=== PATIENT | female | born 1960 | race Caucasian/White ===

== ENCOUNTER 2018-06-18 06:45 | Observation (INO) ==
[2018-06-18] MEDS ORDERED: Ciprofloxacin 400 MG/200 ML 400 MG/200 ML PIGGYBACK IV.SIG ONE (07:11)
[2018-06-18] MEDS ORDERED: Sod Chloride 0.9% Inj 1,000 ML IV.SIG ONE (07:11)
[2018-06-18 07:32] LABS: Baso % (Auto) 0.6 % (0.0-2.0); Eos # (Auto) 0.3 th/mm3 (0.0-0.4); Eos % (Auto) 3.5 % (0.0-4.0); Hematocrit 40.5 % (35.0-46.0); Hemoglobin 13.6 gm/dL (11.6-15.3); Lymph # (Auto) 2.1 th/mm3 (1.0-4.8); Mean Corpuscular HGB Conc 33.5 % (32.0-36.0); Mean Corpuscular Hemoglobin 32.3 pg (27.0-34.0); Mean Corpuscular Volume 96.3 fL (80.0-100.0); Mean Platelet Volume 7.8 fL (7.0-11.0); Mono # (Auto) 0.7 th/mm3 (0.0-0.9); Neut # (Auto) 4.1 th/mm3 (1.8-7.7); Neut % (Auto) 57.9 % (16.0-70.0); Platelet Count 239 th/mm3 (150-450); Red Cell Distribution Width 12.9 % (11.6-17.2); White Blood Count 7.2 th/mm3 (4.0-11.0)
[2018-06-18 07:45] LABS: Chloride 108 meq/L (98-107); Potassium 3.7 meq/L (3.5-5.1); Sodium 140 meq/L (136-145)
[2018-06-18 07:49] LABS: Albumin 3.5 g/dL (3.4-5.0); Anion Gap 5 meq/L (5-15); Blood Urea Nitrogen 13 mg/dL (7-18); Carbon Dioxide 26.7 meq/L (21.0-32.0); Glucose,Random 98 mg/dL (74-106); Lipase 96 U/L (73-393)
[2018-06-18 07:52] LABS: Alanine Aminotransferase 30 U/L (10-53); Aspartate Aminotransferase 19 U/L (15-37); Glomerular Filtration Rate 67 mL/min (>89)
[2018-06-18 07:53] LABS: Total Protein 8.1 g/dL (6.4-8.2)
[2018-06-18 07:55] LABS: Alkaline Phosphatase 88 U/L (45-117)
--- NOTE | 2018-06-18 08:03 | ED ---
HPI General Chief Complaint: Abdominal Pain Stated Complaint: N/V after taking abx Time Seen by Provider: 06/18/18 07:07 Source: patient Mode of arrival: ambulatory Limitations: no limitations History of Present Illness HPI narrative: 57-year-old female arrives with abdominal pain which originates in the left lower pelvis and radiates to the left abdomen left upper quadrant and epigastrium. She was seen here 2 days ago and was diagnosed with colitis. She was discharged with Cipro and Flagyl. She has been vomiting over the past 2 nights rendering oral antibiotics to be of questionable efficacy. No fever. Pain has not worsened in severity however the overall area of painful involvement is greater. Patient has a history of colon resection in the remote past done by Dr. Mensah however patient does not follow with [facility] anymore or Dr. Mensah. Patient reports constipation for 2 days. Related Data Home Medications Medication Instructions Recorded Confirmed diphenhydramine HCl [Benadryl 25 mg PO HS 06/16/18 06/18/18 Allergy] famotidine [Pepcid] 20 mg PO DAILY 06/16/18 06/18/18 nifedipine 30 mg PO DAILY 06/16/18 06/18/18 simvastatin 40 mg PO QPM 06/16/18 06/18/18 Previous Rx's Medication Instructions Recorded ciprofloxacin HCl [Cipro] 500 mg PO Q12H #20 tab 06/16/18 metronidazole [Flagyl] 500 mg PO Q8H 10 Days #30 tab 06/16/18 Allergies Allergy/AdvReac Type Severity Reaction Status Date / Time adhesive Allergy Intermediate rash Verified 06/18/18 07:33 fexofenadine Allergy Intermediate NAUSEA AND Verified 06/18/18 07:33 VOMITING latex Allergy Intermediate blisters Verified 06/18/18 07:33 penicillin G Allergy Intermediate RASH Verified 06/18/18 07:33 hydromorphone AdvReac Intermediate NAUSEA/VOMI Verified 06/18/18 07:33 TING Review of Systems ROS: all other systems reviewed are negative Constitutional Denies fever(s) [facility] Medical History Medical History History of diverticulitis (Acute) History of hypercholesterolemia (Acute) History of hypertension (Acute) History of hysterectomy (Acute) Surgical History Surgical History History of colostomy reversal (Acute) Social History Social History Substance History: No History of Abuse Second Hand Smoke Exposure: No Smoking Status: Current every day smoker Tobacco Type: Cigarettes How Often Do You Have a Drink Containing Alcohol: Never Recent Travel in [facility] within the Last 8 Weeks: No Recent Out of Country Travel within the Last 8 Weeks: No Immunization History Tetanus Immunization: Unsure Hx Influenza Vaccine This Season: No Exam Narrative Exam Narrative: GENERAL: 57-year-old female pleasant well-nourished well- developed mild distress due to pain SKIN: Focused skin assessment warm/dry. HEAD: Atraumatic. Normocephalic. EYES: Pupils equal and round. No scleral icterus. No injection or drainage. ENT: No nasal bleeding or discharge. Mucous membranes pink and moist. NECK: Trachea midline. No JVD. CARDIOVASCULAR: Regular rate and rhythm. No murmur appreciated. RESPIRATORY: No accessory muscle use. Clear to auscultation. Breath sounds equal bilaterally. GASTROINTESTINAL: Soft. Diffuse tenderness. MUSCULOSKELETAL: No obvious deformities. No clubbing. No cyanosis. No edema. NEUROLOGICAL: Awake and alert. No obvious cranial nerve deficits. Motor grossly within normal limits. Normal speech. PSYCHIATRIC: Appropriate mood and affect; insight and judgment normal. Course Initial Documented Vital Signs Temperature 98.3 F 06/18/18 06:50 Pulse Rate 88 06/18/18 06:50 Respiratory Rate 16 06/18/18 06:50 Blood Pressure 126/71 06/18/18 06:50 Pulse Oximetry 98 06/18/18 06:50 Last Documented Vital Signs Temperature 98.3 F 06/18/18 06:50 Pulse Rate 74 06/18/18 09:49 Respiratory Rate 18 06/18/18 09:49 Blood Pressure 136/84 06/18/18 09:49 Pulse Oximetry 99 06/18/18 09:49 Medical Decision Making [facility] Narrative Medical decision making narrative: Patient will be admitted for IV antibiotics in the setting of colitis with nausea vomiting. Pain has been decreased as well. The patient reports positive flatus overnight but none this morning. Case discussed with Dr. Sanchez. Abdominal x-ray added on. Film shows nonobstructive bowel gas pattern. Patient has been able to ambulate ED. No vomiting here. She has received IV Cipro and Flagyl. Medical Screen Exam Complete: Yes Emergency Medical Condition: Yes Medical Records Medical records reviewed: Yes I reviewed the patient's medical records. Lab Data Lab results reviewed: Yes I reviewed the patient's lab results. Lab results narrative: UA: no UTI Result diagrams: 06/18/18 07:28 06/18/18 07:28 Lab Results 06/18/18 06/18/18 06/18/18 Range/Units 07:28 07:28 08:59 CBC w Diff Auto diff final WBC 7.2 (4.0-11.0) th/mm3 RBC 4.20 (4.00-5.30) mil/mm3 Hgb 13.6 (11.6-15.3) gm/dL Hct 40.5 (35.0-46.0) % MCV 96.3 (80.0-100.0) fL MCH 32.3 (27.0-34.0) pg MCHC 33.5 (32.0-36.0) % RDW 12.9 (11.6-17.2) % Plt Count 239 (150-450) th/mm3 MPV 7.8 (7.0-11.0) fL Neut % (Auto) 57.9 (16.0-70.0) % Lymph % (Auto) 29.0 (9.0-44.0) % [place] % (Auto) 9.0 H (0.0-8.0) % Eos % (Auto) 3.5 (0.0-4.0) % Baso % (Auto) 0.6 (0.0-2.0) % Neut # (Auto) 4.1 (1.8-7.7) th/mm3 Lymph # (Auto) 2.1 (1.0-4.8) th/mm3 [place] # (Auto) 0.7 (0.0-0.9) th/mm3 Eos # (Auto) 0.3 (0.0-0.4) th/mm3 Baso # (Auto) 0.0 (0.0-0.2) th/mm3 WBC Differential . Differential Comment . Sodium 140 (136-145) meq/L Potassium 3.7 (3.5-5.1) meq/L Chloride 108 H (98-107) meq/L Carbon Dioxide 26.7 (21.0-32.0) meq/L Anion Gap 5 (5-15) meq/L BUN 13 (7-18) mg/dL Creatinine 0.87 (0.50-1.00) mg/dL Estimated GFR 67 L (>89) mL/min Random Glucose 98 (74-106) mg/dL Calcium 9.0 (8.5-10.1) mg/dL Total Bilirubin 0.3 (0.2-1.0) mg/dL AST 19 (15-37) U/L ALT 30 (10-53) U/L Alkaline Phosphatase 88 (45-117) U/L Total Protein 8.1 (6.4-8.2) g/dL Albumin 3.5 (3.4-5.0) g/dL Lipase 96 (73-393) U/L Ur Collection Type Cath Urine Color Yellow (Yellw/Straw) Urine Clarity Clear (Clear) Urine pH 6.0 (5.0-8.5) Ur Specific [place] 1.020 (1.002-1.035) Urine Protein Negative (Neg-Trace) mg/dL Urine Glucose (UA) Negative (Negative) mg/dL Urine Ketones Negative (Negative) mg/dL Urine Occult Blood Negative (Negative) Urine Nitrate Negative (Negative) Urine Bilirubin Negative (Negative) Urine Urobilinogen 0.2 (Less than 2) mg/dL Ur Leukocyte Esterase Negative (Negative) Urine RBC 0-3 (0-3) /hpf Urine WBC 0-5 (0-5) /hpf Ur Squamous Epith Cells 6-10 H (0-5) /hpf Micro UA Comment Cath-culture not ind Urine Culture Comments Cath-cult not ind Imaging Data Radiologist's impression: Abdomen X-Ray 06/18/18 10:29 CONCLUSION: 1. Plain film findings characteristic of prior anterior abdominal wall hernia mesh repair. 2. Nonobstructive bowel gas pattern. Discharge Plan Discharge Disposition Patient Disposition: 30 Still Patient Physicians Team ED Provider: Carlos Cruz Primary Care Provider: Adam Cruz Attending Provider: Basilio Sanchez Status ED Status: Admitted Observation Patient
[2018-06-18] MEDS ORDERED: Acetaminophen 325 MG Tablet PO ONE (08:12)
[2018-06-18 09:15] LABS: Bilirubin,Urine Negative (Negative); Clarity,Urine Clear (Clear); Color,Urine Yellow (Yellw/Straw); Glucose,Urine (UA) Negative (Negative); Leukocyte Esterase,Urine Negative (Negative); Nitrite,Urine Negative (Negative); Urobilinogen,Urine 0.2 mg/dL (Less than 2)
[2018-06-18 09:29] LABS: RBC,Urine 0-3 /hpf (0-3); WBC,Urine 0-5 /hpf (0-5)
[2018-06-18] MEDS ORDERED: Temazepam 15 MG Capsule PO PRN (10:50)
--- NOTE | 2018-06-18 10:55 | XR ---
EXAM DATE: 06/18/2018 10:46 AM EDT AGE/SEX: 57 years / Female INDICATIONS: Abdominal pain and vomiting CLINICAL DATA: This is the patient's subsequent encounter. Patient reports that signs and symptoms h ave been present for 2 days and indicates a pain score of 10/10. MEDICAL/SURGICAL HISTORY: . Diverticulitis. Hypertension. Colitis Hysterectomy. Colon resecti on. Multiple hernia repairs with mesh. COMPARISON: [facility] – [place], SMALL BOWEL SERIES W/GASTROGRAFIN, 02/04/2015. . FINDINGS: The abdominal bowel gas pattern is normal. No obstruction or pneumoperitoneum. Innumerable coil-like metallic densities are characteristic of a prior abdominal hernia mesh repair. CONCLUSION: 1. Plain film findings characteristic of prior anterior abdominal wall hernia mesh repair. 2. Nonobstructive bowel gas pattern. Electronically signed by: Husma Miller MD 06/18/2018 10:54 AM EDT
[2018-06-18] MEDS ORDERED: Enoxaparin Inj 40 MG/0.4 ML Syringe SQ SCH (11:00)
[2018-06-18] MEDS: Sod Chloride 0.9% Inj 1,000 ML IV.CONT SCH ×2 (11:18→22:36)
--- NOTE | 2018-06-18 13:00 | P.HP ---
History of Present Illness Primary Care Physician: Adam Cruz MD Chief Complaint: Nausea vomiting History of Present Illness: 57-year-old female with known history of hypertension, hyperlipidemia , chronic history of recurrent diverticulitis status post multiple surgeries, colostomy, reversal, hernias. Patient is well-known to pain associated with diverticulitis she started developing that approximate 1 week ago. She came to the emergency department 2 days ago and was given prescription for Cipro and Flagyl. Patient states that she fill the prescription yesterday morning and after he took her first dose she got significant nausea with subsequent vomiting. She states that she cannot keep any liquids or solids down. She try to take another dose last evening however she was unsuccessful. Patient has not been able to tolerate anything by mouth since yesterday. Unable take oral medication for her underlying condition. Patient came to emergency department for evaluation. It was recommended by ER physician the patient be admitted for further evaluation and management for failing outpatient treatment. At the time of seeing the patient she states that she is doing better. She is asking if she can have something to drink and eat. Her pain is still located in the left lower quadrant which was a 6/10 on a pain scale. No radiation. She denies any diarrhea. She does have constipation on a daily basis and she takes a laxative every day. She denies any melena or hematochezia. - Diagnosis (1) Diverticulitis (2) Failure of outpatient treatment Review of Systems All other systems reviewed negative except as stated in HPI Gastrointestinal: Reports abdominal pain, Reports constipation, Reports nausea, Reports vomiting PMFSH - History History Provided By: Patient - Medical History Medical History: Medical History (Last Updated 06/16/18 @ 19:49 by Oj Munroe RN) History of diverticulitis History of hypercholesterolemia History of hypertension History of hysterectomy - Surgical History Surgical History: Surgical History (Last Updated 06/18/18 @ 12:54 by MARIA ESTHER Mckeon) History of colostomy reversal History of hysterectomy - Family History Family History: Family History (Last Updated 06/18/18 @ 12:54 by MARIA ESTHER Mckeon) Other No pertinent family history - Tobacco History Second Hand Smoke Exposure: Yes () Tobacco Use In Past 30 Days: Yes Smoking Status: Current every day smoker Tobacco Type: Cigarettes Packs Per Day: 0.5 Years Smoked: 45 - Alcohol History How Often Do You Have a Drink Containing Alcohol: Never - Substance Use History Substance History: No History of Abuse - Travel History Recent Travel in the [place] Within the Last 8 Weeks: Yes Recent Travel Out of the Country Within the Last 8 Weeks: No - Immunization History Tetanus Immunization: Unsure Hx Influenza Vaccine This Season: No Medications and Allergies Active Medications: Active Medications Al Hydroxide/Mg Hydroxide (Milk Of Fanny Liq) 30 ml PO Q12H PRN PRN Reason: Mild Constipation Enoxaparin Sodium (Lovenox Inj) 40 mg SQ Q24H [facility] Last Admin: 06/18/18 11:18 Dose: 40 mg Levofloxacin/Dextrose (Levaquin 750 Mg Premix Inj) 150 mls @ 100 mls/hr IV.SIG Q24H [facility] Metronidazole/Sodium Chloride (Flagyl 500 Mg Inj) 100 mls @ 100 mls/hr IV.SIG Q6H [facility] Sodium Chloride (Ns Inj) 1,000 mls @ 100 mls/hr IV.CONT .Q10H [facility] Last Admin: 06/18/18 11:18 Dose: 100 mls/hr Nifedipine (Procardia Xl) 30 mg PO DAILY LEON Sodium Chloride (Ns Flush) 2 ml IV.FLUSH PRN PRN PRN Reason: FLUSH AFTER USING IV ACCESS Temazepam (Restoril) 15 mg PO HS PRN PRN Reason: INSOMNIA Allergies Allergy/AdvReac Type Severity Reaction Status Date / Time adhesive Allergy Intermediate rash Verified 06/18/18 07:33 fexofenadine Allergy Intermediate NAUSEA AND Verified 06/18/18 07:33 VOMITING latex Allergy Intermediate blisters Verified 06/18/18 07:33 penicillin G Allergy Intermediate RASH Verified 06/18/18 07:33 hydromorphone AdvReac Intermediate NAUSEA/VOMI Verified 06/18/18 07:33 TING Home Medications Medication Instructions Recorded Confirmed Type diphenhydramine HCl [Benadryl 25 mg PO HS 06/16/18 06/18/18 History Allergy] famotidine [Pepcid] 20 mg PO DAILY 06/16/18 06/18/18 History nifedipine 30 mg PO DAILY 06/16/18 06/18/18 History simvastatin 40 mg PO QPM 06/16/18 06/18/18 History Exam Vital signs: Vital Signs 06/18/18 06:50 06/18/18 07:11 06/18/18 09:49 Temperature 98.3 F Pulse Rate 88 74 Respiratory Rate 16 18 Blood Pressure 126/71 136/84 Pulse Oximetry 98 94 L 99 06/18/18 11:36 06/18/18 12:00 Temperature 96.6 F L Pulse Rate 74 69 Respiratory Rate 16 18 Blood Pressure 136/79 132/78 Pulse Oximetry 95 Intake & Output 06/17/18 06/18/18 06/18/18 18:59 06:59 18:59 Intake Total 1300 / 1300 Balance 1300 / 1300 Weight 83 kg 83.7 kg Intake: IV 1300 / 1300 Cipro 400 MG/200 ML Inj 400 mg 200 / 200 In 200 ml @ 200 mls/hr IV.SIG ONCE ONE Rx#:[id number] NS Inj 1,000 ML @ Wide Open IV. 1000 / 1000 SIG BOLUS ONE Rx#:[id number] Flagyl 500 MG Inj 100 ML @ 100 100 / 100 mls/hr IV.SIG ONCE ONE Rx#: [id number] Other: Weight On Admission 83.7 kg Narrative: GENERAL: Well-developed, well-nourished, in no acute distress. alert and orientated HEENT: Head is normocephalic without any lesions or masses noted. Facial features are symmetric. Eyes: Pupils equal round reactive to light. Extraocular muscles are intact. Conjunctivae were clear. Oropharyngeal: Pharynx without any erythema edema. Tongue is midline without deviation. Buccal mucosa is moist without any masses or lesions NECK: Supple without any masses. Trachea midline no deviation. No JVD, no bruits are appreciated CARDIAC: Regular rhythm, regular rate. S1/S2 are heard. No murmurs gallops or rubs. LUNGS: Clear to auscultation bilaterally. No wheeze, rhonchi or rales. No use of accessory muscles on inspiration or expiration. ABDOMEN: Soft, abdominal tenderness noted along the left abdomen. Nondistended. Bowel sounds heard in all 4 quadrants. No organomegaly or masses. Negative rebound, negative guarding EXTREMITIES: No edema, pulses are equal bilaterally. No cyanosis or clubbing NEUROLOGY: Mood and affect appear appropriate. Cranial nerves II through XII grossly intact. Muscle strength 5/5 in upper and lower extremities bilaterally. Deep tendon reflexes are 2+ in upper and lower extremities bilaterally. Results - Labs CBC & Chem 7: 06/18/18 07:28 06/18/18 07:28 Labs: Laboratory Results - last 24 hr 06/18/18 06/18/18 06/18/18 07:28 07:28 08:59 CBC w Diff Auto diff final WBC 7.2 RBC 4.20 Hgb 13.6 Hct 40.5 MCV 96.3 MCH 32.3 MCHC 33.5 RDW 12.9 Plt Count 239 MPV 7.8 Neut % (Auto) 57.9 Lymph % (Auto) 29.0 [place] % (Auto) 9.0 H Eos % (Auto) 3.5 Baso % (Auto) 0.6 Neut # (Auto) 4.1 Lymph # (Auto) 2.1 [place] # (Auto) 0.7 Eos # (Auto) 0.3 Baso # (Auto) 0.0 WBC Differential . Differential Comment . Sodium 140 Potassium 3.7 Chloride 108 H Carbon Dioxide 26.7 Anion Gap 5 BUN 13 Creatinine 0.87 Estimated GFR 67 L Random Glucose 98 Calcium 9.0 Total Bilirubin 0.3 AST 19 ALT 30 Alkaline Phosphatase 88 Total Protein 8.1 Albumin 3.5 Lipase 96 Ur Collection Type Cath Urine Color Yellow Urine Clarity Clear Urine pH 6.0 Ur Specific [place] 1.020 Urine Protein Negative Urine Glucose (UA) Negative Urine Ketones Negative Urine Occult Blood Negative Urine Nitrate Negative Urine Bilirubin Negative Urine Urobilinogen 0.2 Ur Leukocyte Esterase Negative Urine RBC 0-3 Urine WBC 0-5 Ur Squamous Epith Cells 6-10 H Micro UA Comment Cath-culture not ind Urine Culture Comments Cath-cult not ind - Imaging Impressions Abdomen X-Ray 06/18/18 10:29 CONCLUSION: 1. Plain film findings characteristic of prior anterior abdominal wall hernia mesh repair. 2. Nonobstructive bowel gas pattern. Caprini VTE Risk Assessment Caprini VTE Risk Assessment: No/Low Risk (score <= 1) Caprini Risk Assessment Model: Point Value = 1 Point Value = 2 Point Value = 3 Point Value = 5 Age 41-60 Minor surgery BMI > 25 kg/m2 Swollen legs Varicose veins or History of unexplained or recurrent spontaneous Oral contraceptives or hormone replacement Sepsis (< 1 month) Serious lung disease, including pneumonia (< 1 month) Abnormal pulmonary function Acute myocardial infarction Congestive heart failure (< 1 month) History of inflammatory bowel disease Medical patient at bed rest Age 61-74 Arthroscopic surgery Major open surgery (> 45 min) Laparoscopic surgery (> 45 min) Malignancy Confined to bed (> 72 hours) Immobilizing plaster cast Central venous access Age >= 75 History of VTE Family history of VTE Factor V Leiden Prothrombin [id number] Lupus anticoagulant Anticardiolipin antibodies Elevated serum homocysteine Heparin-induced thrombocytopenia Other congenital or acquired thrombophilia Stroke (< 1 month) Elective arthroplasty Hip, pelvis, or leg fracture Acute spinal cord injury (< 1 month) Prophylaxis Regimen: Total Risk Factor Score Risk Level Prophylaxis Regimen 0-1 Low Early ambulation 2 Moderate Order ONE of the following: *Sequential Compression Device (SCD) *Heparin 5000 units SQ BID 3-4 Higher Order ONE of the following medications: *Heparin 5000 units SQ TID *Enoxaparin/Lovenox 40 mg SQ daily (WT < 150 kg, CrCl > 30 mL/min) *Enoxaparin/Lovenox 30 mg SQ daily (WT < 150 kg, CrCl > 10-29 mL/min) *Enoxaparin/Lovenox 30 mg SQ BID (WT < 150 kg, CrCl > 30 mL/min) AND/OR *Sequential Compression Device (SCD) 5 or more Highest Order ONE of the following medications: *Heparin 5000 units SQ TID (Preferred with Epidurals) *Enoxaparin/Lovenox 40 mg SQ daily (WT < 150 kg, CrCl > 30 mL/min) *Enoxaparin/Lovenox 30 mg SQ daily (WT < 150 kg, CrCl > 10-29 mL/min) *Enoxaparin/Lovenox 30 mg SQ BID (WT < 150 kg, CrCl > 30 mL/min) AND *Sequential Compression Device (SCD) Assessment and Plan - Assessment (1) Diverticulitis Code(s): K57.92 - Diverticulitis of intestine, part unspecified, without perforation or abscess without bleeding Status: Acute (2) Failure of outpatient treatment Code(s): Z78.9 - Other specified health status Status: Acute - Plan Diverticulitis -Patient admitted due to failing outpatient management secondary to intractable nausea vomiting unable to take oral medications -Start Levaquin/Flagyl IV -Continue IV fluid -Antiemetic as needed -Advance diet as tolerated Hypertension, hyperlipidemia -Home blood pressure medications have been continued -Continue monitor blood pressure and adjust medications as needed DVT prevention -Sequential compression devices -Subcutaneous Lovenox Discussed Condition With: ER physician, Dr. Sanchez, patient, nursing staff Discharge Planning: Discharge planning once patient able to tolerate oral medications.
[2018-06-18] MEDS ORDERED: Pantoprazole Inj 40 MG Vial IV.PUSH SCH (14:00)
[2018-06-18] MEDS ORDERED: Acetaminophen 325 MG Tablet PO PRN (23:22)
[2018-06-19] MEDS: Sod Chloride 0.9% Inj 1,000 ML IV.CONT SCH ×2 (04:23→08:08)
--- NOTE | 2018-06-19 07:20 | P.PN ---
Subjective Interval history: 57-year-old female who is seen and examined today for follow-up on colitis and intractable nausea vomiting. Patient is tolerating diet at this time. She is very eager to go home is requesting to be discharged. She is having normal bowel movements this morning. Tolerating diet. Vital signs are stable. Patient remains afebrile. Physical Exam Vital signs: Vital Signs 06/18/18 09:49 06/18/18 11:36 06/18/18 12:00 Temperature 96.6 F L Pulse Rate 74 74 69 Respiratory Rate 18 Blood Pressure 136/84 136/79 132/78 Pulse Oximetry 99 95 06/18/18 16:00 06/18/18 20:00 06/19/18 00:00 Temperature 97.6 F 96.6 F L 97 F L Pulse Rate 69 63 73 Respiratory Rate 18 Blood Pressure 140/87 148/87 H 124/77 Pulse Oximetry 98 98 97 Intake & Output 06/18/18 06/19/18 06/19/18 18:59 06:59 18:59 Intake Total 1999 1685 / 1685 Balance 1999 1685 / 1685 Weight 83.7 kg 86 kg Intake: IV 1400 / 1400 1200 / 1200 NS Inj 1,000 ML @ 100 mls/hr IV 1000 / 1000 .CONT .Q10H [facility] Rx#:[id number] Cipro 400 MG/200 ML Inj 400 mg 200 / 200 In 200 ml @ 200 mls/hr IV.SIG ONCE ONE Rx#:[id number] NS Inj 1,000 ML @ Wide Open IV. 1000 / 1000 SIG BOLUS ONE Rx#:[id number] Flagyl 500 MG Inj 100 ML @ 100 200 / 200 200 / 200 mls/hr IV.SIG Q6H [facility] Rx#: [id number] Oral 600 / 600 485 / 485 Other: # Voids 2 3 Date of Last Bowel Movement 06/16/18 06/18/18 # Bowel Movements 0 # Incontinent Bowel Movements 2 Weight On Admission 83.7 kg Narrative: GENERAL: Well-developed, well-nourished, in no acute distress. alert and orientated HEENT: Head is normocephalic without any lesions or masses noted. Facial features are symmetric. Eyes: Extraocular muscles are intact. Conjunctivae were clear. NECK: Supple without any masses. Trachea midline no deviation. No JVD, CARDIAC: Regular rhythm, regular rate. S1/S2 are heard. No murmurs gallops or rubs. LUNGS: Clear to auscultation bilaterally. No wheeze, rhonchi or rales. No use of accessory muscles on inspiration or expiration. ABDOMEN: Soft, nontender. Nondistended. Bowel sounds heard in all 4 quadrants. No organomegaly or masses. Negative rebound, negative guarding EXTREMITIES: No edema, pulses are equal bilaterally. No cyanosis or clubbing NEUROLOGY: Mood and affect appear appropriate. Cranial nerves II through XII grossly intact. Moving all extremities, speech is clear Results - Labs CBC & Chem 7: 06/18/18 07:28 06/18/18 07:28 Laboratory Results - last 24 hr 06/18/18 06/18/18 06/18/18 07:28 07:28 08:59 CBC w Diff Auto diff final WBC 7.2 RBC 4.20 Hgb 13.6 Hct 40.5 MCV 96.3 MCH 32.3 MCHC 33.5 RDW 12.9 Plt Count 239 MPV 7.8 Neut % (Auto) 57.9 Lymph % (Auto) 29.0 [place] % (Auto) 9.0 H Eos % (Auto) 3.5 Baso % (Auto) 0.6 Neut # (Auto) 4.1 Lymph # (Auto) 2.1 [place] # (Auto) 0.7 Eos # (Auto) 0.3 Baso # (Auto) 0.0 WBC Differential . Differential Comment . Sodium 140 Potassium 3.7 Chloride 108 H Carbon Dioxide 26.7 Anion Gap 5 BUN 13 Creatinine 0.87 Estimated GFR 67 L Random Glucose 98 Calcium 9.0 Total Bilirubin 0.3 AST 19 ALT 30 Alkaline Phosphatase 88 Total Protein 8.1 Albumin 3.5 Lipase 96 Ur Collection Type Cath Urine Color Yellow Urine Clarity Clear Urine pH 6.0 Ur Specific [place] 1.020 Urine Protein Negative Urine Glucose (UA) Negative Urine Ketones Negative Urine Occult Blood Negative Urine Nitrate Negative Urine Bilirubin Negative Urine Urobilinogen 0.2 Ur Leukocyte Esterase Negative Urine RBC 0-3 Urine WBC 0-5 Ur Squamous Epith Cells 6-10 H Micro UA Comment Cath-culture not ind Urine Culture Comments Cath-cult not ind - Imaging Impressions Abdomen X-Ray 06/18/18 10:29 CONCLUSION: 1. Plain film findings characteristic of prior anterior abdominal wall hernia mesh repair. 2. Nonobstructive bowel gas pattern. Assessment and Plan - Assessment (1) Diverticulitis Code(s): K57.92 - Diverticulitis of intestine, part unspecified, without perforation or abscess without bleeding Status: Acute (2) Failure of outpatient treatment Code(s): Z78.9 - Other specified health status Status: Acute - Plan Diverticulitis -Patient admitted due to failing outpatient management secondary to intractable nausea vomiting unable to take oral medications -Continue Levaquin/Flagyl IV -Continue IV fluid -Antiemetic as needed -Advance diet as tolerated, patient is tolerating diet at this time -Patient is tolerating diet, having normal bowel movements. Patient requesting to be discharged home. Hypertension, hyperlipidemia -Home blood pressure medications have been continued -Continue monitor blood pressure and adjust medications as needed DVT prevention -Sequential compression devices -Subcutaneous Lovenox Discharge Planning: Discharge home in stable condition Activity: Ad leodan. Diet: Regular diet Medication per medication reconciliation Follow-up with primary medical doctor in 1 week
[2018-06-19 10:56] VITALS: BP 148/80; PULSE 68; RESP 20; TEMP 97.7; O2SAT 98
== END 2018-06-19 09:21 | disposition home or self-care (01) ==
LOC: PH3 06:45 → PHED 06:45 → PHEDA 06:45 → PH3 11:33
PROVIDERS: ADMIT Family Medicine; ATTEND Family Medicine